=== PATIENT | male | born 1980 | race African-American/Black ===

== ENCOUNTER 2016-10-16 10:27 | Emergency (ER) | payer OTHER ==
--- NOTE | 2016-10-16 10:32 | ER Document Report ---
ED Medical Screen (RME) - General Stated Complaint: SORE THROAT Notes: onset thursday sore throat all week with mild improvement over the course of the week while hes been drinking hot tea. Also left teeth pain, c/o left upper and two on the lower jaw. he states he was referred over for abx. Denies fever, chills he did receive a flu vaccine this year I have greeted and performed a rapid initial assessment of this patient. A comprehensive ED assessment and evaluation of the patient, analysis of test results and completion of the medical decision making process will be conducted by additional ED providers. TRAVEL OUTSIDE OF THE [place] IN LAST 30 DAYS: No - Related Data Allergies/Adverse Reactions: No Known Allergies Allergy (Verified 10/16/16 10:29) Past Medical History - Past Medical History Cardiac Medical History: Reports: Hx Hypertension - Immunizations Immunizations up to date: Yes Hx Diphtheria, Pertussis, Tetanus Vaccination: Yes
--- NOTE | 2016-10-16 11:14 | ER Document Report ---
ED General - General Chief Complaint: Sore Throat Stated Complaint: SORE THROAT Time seen by provider: 10:55 Mode of Arrival: Ambulatory Information source: Patient Notes: 36-year-old male with 3 day history of sore throat and four-day history of pain and swelling to the left upper posterior tooth in the left lower posterior 2 teeth. Patient says he has seen an oral surgeon Dr. Valle has been told he needs surgery for the teeth but is waiting on insurance issues. He denies fever , chills, nausea, vomiting, cough, earache, headache, chest pain, abdominal pain , back pain. Patient reports he saw a dentist last month but never took antibiotics for pain medicines because he lost. Physical Exam: General: Alert, appears well. HEENT: Normocephalic. Atraumatic. PERRLA. Extraocular movements intact. Tympanic members canals clear Oropharynx has faint erythema to tonsillar area bilaterally but no exudate or swelling. He does have erythema and swelling around the left upper posterior tooth in the left lower posterior tooth teeth with obvious dental defects to the bottom teeth. He has no stridor hoarseness or drooling Neck: Supple. Non-tender. No adenopathy no nuchal rigidity Respiratory: No respiratory distress. Clear and equal breath sounds bilaterally. Cardiovascular: Regular rate and rhythm. Abdominal: Normal Inspection. Soft, non-tender. No distension. Normal Bowel Sounds. Back: Non-tender. No deformity or step off. Extremities without gross deformities Neurological speech clear mentation normal. Psychological: Normal affect. Normal Mood. Skin: Warm. Dry. Normal color. TRAVEL OUTSIDE OF THE [place] IN LAST 30 DAYS: No - Related Data Allergies/Adverse Reactions: No Known Allergies Allergy (Verified 10/16/16 10:29) Past Medical History - Social History Smoking Status: Never Smoker Chew tobacco use (# tins/day): No Frequency of alcohol use: None Drug Abuse: None Family History: Hypertension Patient has suicidal ideation: No Patient has homicidal ideation: No - Past Medical History Cardiac Medical History: Reports: Hx Hypertension Renal/ Medical History: Denies: Hx Peritoneal Dialysis Surgical Hx: Negative - Immunizations Immunizations up to date: Yes Hx Diphtheria, Pertussis, Tetanus Vaccination: Yes Hx Pneumococcal Vaccination: 08/10/00 Review of Systems - Review of Systems Constitutional: denies: Chills, Fever EENT: Throat pain. denies: Ear pain Cardiovascular: denies: Chest pain, Syncope Respiratory: denies: Cough, Short of breath Gastrointestinal: denies: Abdominal pain, Nausea, Vomiting Genitourinary: denies: Burning Musculoskeletal: denies: Back pain Skin: denies: Rash Hematologic/Lymphatic: denies: Swollen glands Neurological/Psychological: denies: Weakness, Numbness Physical Exam - Vital signs Vitals: Temp Pulse Resp BP Pulse Ox 98.1 F 78 17 145/109 H 100 10/16/16 10:31 10/16/16 10:31 10/16/16 10:31 10/16/16 10:31 10/16/16 10:31 Course - Re-evaluation Re-evalutation: 10/16/16 11:16 Patient's rapid strep was negative but a believe he requires antibiotics for odontogenic infection. Also be prescribed tramadol for pain and instructed follow-up with dentist. Believe the acute pharyngitis is viral - Vital Signs Vital signs: Temp Pulse Resp BP Pulse Ox 98.1 F 78 17 145/109 H 100 10/16/16 10:31 10/16/16 10:31 10/16/16 10:31 10/16/16 10:31 10/16/16 10:31 Discharge - Discharge Clinical Impression: Dental infection Acute pharyngitis Qualifiers: Pharyngitis/tonsillitis etiology: unspecified etiology Qualified Code(s): J02.9 - Acute pharyngitis, unspecified Condition: Stable Disposition: HOME, SELF-CARE Additional Instructions: Dental Infection or Abscess You have an infection, perhaps an abscess (pus formation) of the gum around one of your teeth, which is probably decayed. If there is an abscess, it may drain on its own or it may need to be opened or lanced. Severe swelling or drainage around a tooth usually means a deep dental abscess which usually requires evaluation and treatment by a dentist or oral surgeon. Antibiotics may be prescribed while awaiting dental treatment. If you develop high fever with chills, worsening pain, or increasing swelling in the area, see a dentist or oral surgeon immediately or return to the Emergency Department immediately. Prescriptions: Amoxicillin 1 tab PO TID #30 tab Tramadol HCl 50 mg PO BID PRN #20 tablet PRN Reason: For Pain Referrals: [facility] [Provider Group] - Follow up as needed
[2016-10-16 11:33] VITALS: BP 139/93
== END 2016-10-16 11:33 | disposition home or self-care (01) ==
LOC: ER 10:27
DX: J02.9 Acute pharyngitis, unspecified (principal); K04.7 Periapical abscess without sinus; K08.89 Other specified disorders of teeth and supporting structures; I10 Essential (primary) hypertension
CPT/HCPCS: 87070; 87880; 99283

== ENCOUNTER 2017-09-15 16:15 | Emergency (ER) | payer OTHER ==
[2017-09-15] MEDS ORDERED: NORMAL SALINE 1000 ML 1,000 ML IV ONE (16:45)
--- NOTE | 2017-09-15 17:02 | ER Document Report ---
ED General - General Chief Complaint: Abdominal Pain Stated Complaint: STOMACH PAIN Time Seen by Provider: 09/15/17 16:45 Mode of Arrival: Ambulatory Information source: Patient TRAVEL OUTSIDE OF THE [place] IN LAST 30 DAYS: No - HPI Patient complains to provider of: abd pain Onset: Yesterday - pt started with abd pain adn diarrhea yesterday - Related Data Allergies/Adverse Reactions: No Known Allergies Allergy (Verified 09/15/17 16:16) Past Medical History - Social History Smoking Status: Never Smoker Chew tobacco use (# tins/day): No Frequency of alcohol use: None Drug Abuse: None Family History: Reviewed & Not Pertinent, Hypertension Patient has suicidal ideation: No Patient has homicidal ideation: No - Past Medical History Cardiac Medical History: Reports: Hx Hypertension Renal/ Medical History: Denies: Hx Peritoneal Dialysis - Immunizations Immunizations up to date: Yes Hx Diphtheria, Pertussis, Tetanus Vaccination: Yes Hx Pneumococcal Vaccination: 08/10/00 Physical Exam - Vital signs Vitals: Temp Pulse Resp BP Pulse Ox 98.8 F 109 H 16 130/105 H 98 09/15/17 16:38 09/15/17 16:38 09/15/17 16:38 09/15/17 16:38 09/15/17 16:38 Course - Vital Signs Vital signs: Temp Pulse Resp BP Pulse Ox 98.8 F 109 H 16 130/105 H 98 09/15/17 16:38 09/15/17 16:38 09/15/17 16:38 09/15/17 16:38 09/15/17 16:38
--- NOTE | 2017-09-15 17:11 | RADIOLOGY REPORT (SQ) ---
EXAM DESCRIPTION: ACUTE ABDOMEN SERIES COMPLETED DATE/TIME: 09/15/2017 5:01 pm REASON FOR STUDY: abd pain COMPARISON: None. NUMBER OF VIEWS: Three views. TECHNIQUE: Frontal chest, supine abdomen and upright/decubitus abdomen radiographic images acquired. LIMITATIONS: None. FINDINGS: CHEST: Lungs clear of infiltrates. FREE AIR: None. No abnormal gas collections. BOWEL GAS PATTERN: Nonobstructive pattern. No dilated loops or air fluid levels. CALCIFICATIONS: No suspicious calcifications. HARDWARE: None in the abdomen. SOFT TISSUES: No gross mass or suggestion of organomegaly. BONES: No acute fracture. No worrisome bone lesions. OTHER: No other significant finding. IMPRESSION: NO RADIOGRAPHIC EVIDENCE FOR ACUTE ABDOMINAL DISEASE. Minimal fecal material TECHNICAL DOCUMENTATION: JOB ID: [id number] [employer]- All Rights Reserved
[2017-09-15 18:01] LABS: APPEARANCE,URINE CLEAR; BILIRUBIN,URINE NEGATIVE (NEGATIVE); COLOR,URINE YELLOW; GLUCOSE, URINE NEGATIVE (NEGATIVE); KETONES,URINE NEGATIVE (NEGATIVE); LEUKOCYTE ESTERASE,URINE NEGATIVE (NEGATIVE); NITRITE,URINE NEGATIVE (NEGATIVE); PROTEIN,URINE NEGATIVE (NEGATIVE); URINE SPECIFIC GRAVITY 1.014; UROBILINOGEN,URINE NEGATIVE mg/dL (<2.0)
[2017-09-15 18:26] LABS: HEMATOCRIT 44.9 % (37.9-51.0); MEAN CORPUSCULAR HEMOGLOBIN 28.2 pg (27.0-33.4); MEAN CORPUSCULAR HGB CONC 33.3 g/dL (32.0-36.0); MEAN CORPUSCULAR VOLUME 85 fl (80-97); PLATELET COUNT 146 10^3/uL (150-450); RED BLOOD COUNT 5.31 10^6/uL (4.35-5.55); RED CELL DISTRIBUTION WIDTH 13.5 % (11.5-14.0); WHITE BLOOD COUNT 4.1 10^3/uL (4.0-10.5)
[2017-09-15 18:41] LABS: ALANINE AMINOTRANSFERASE 29 U/L (21-72); ALBUMIN 4.6 g/dL (3.5-5.0); ALKALINE PHOSPHATASE 58 U/L (38-126); ANION GAP 10 (5-19); ASPARTATE AMINO TRANSFERASE 27 U/L (17-59); BILIRUBIN,DIRECT 0.4 mg/dL (0.0-0.4); BILIRUBIN,TOTAL 1.1 mg/dL (0.2-1.3); BLOOD UREA NITROGEN 12 mg/dL (7-20); CALCIUM 10.5 mg/dL (8.4-10.2); CARBON DIOXIDE 28 mmol/L (22-30); CHLORIDE 105 mmol/L (98-107); GLUCOSE 83 mg/dL (75-110); LIPASE 218.2 U/L (23-300); POTASSIUM 4.3 mmol/L (3.6-5.0); SODIUM 142.8 mmol/L (137-145); TOTAL PROTEIN 8.1 g/dL (6.3-8.2)
[2017-09-15 18:50] LABS: ABSOLUTE LYMPHOCYTES# (MANUAL) 0.9 10^3/uL (0.5-4.7); ABSOLUTE MONOCYTES # (MANUAL) 0.5 10^3/uL (0.1-1.4); ABSOLUTE NEUTROPHILS# (MANUAL) 2.6 10^3/uL (1.7-8.2); BASOPHILS % (MANUAL) 0 % (0-2); EOSINOPHILS % (MANUAL) 3 % (0-6); LYMPHOCYTES % (MANUAL) 23 % (13-45); MONOCYTES % (MANUAL) 11 % (3-13); SEGMENTED NEUTROPHILS % (MAN) 63 % (42-78); TOTAL CELLS COUNTED 100
[2017-09-15 18:51] LABS: PLATELET COMMENT DECREASED; PLATELET LARGE PRESENT; TOXIC GRANULATION SLIGHT
--- NOTE | 2017-09-15 20:45 | ER Document Report ---
ED General - General Chief Complaint: Abdominal Pain Stated Complaint: STOMACH PAIN Time Seen by Provider: 09/15/17 16:45 Mode of Arrival: Ambulatory Notes: 37-year-old male presents with diarrhea for 1 day, no belly pain or vomiting. Family with same. Symptoms are moderate. Not taking any medication at home. Denies fever chills. No antibiotics foreign travel. TRAVEL OUTSIDE OF THE [place] IN LAST 30 DAYS: No - Related Data Allergies/Adverse Reactions: No Known Allergies Allergy (Verified 09/15/17 16:16) Past Medical History - General Information source: Patient - Social History Smoking Status: Never Smoker Chew tobacco use (# tins/day): No Frequency of alcohol use: None Drug Abuse: None Family History: Reviewed & Not Pertinent, Hypertension Patient has suicidal ideation: No Patient has homicidal ideation: No - Past Medical History Cardiac Medical History: Reports: Hx Hypertension Renal/ Medical History: Denies: Hx Peritoneal Dialysis - Immunizations Immunizations up to date: Yes Hx Diphtheria, Pertussis, Tetanus Vaccination: Yes Hx Pneumococcal Vaccination: 08/10/00 Review of Systems - Review of Systems Notes: REVIEW OF SYSTEMS GEN: Denies fever, chills, weight loss ENT: Denies sore throat, nasal discharge, ear pain EYES: Denies blurry vision, eye pain, discharge CV: Denies chest pain, palpitations, edema RESP: Denies cough, shortness of breath, wheezing GI: Diarrhea MSK: Denies joint pain/swelling, edema, SKIN: Denies rash, skin lesions LYMPH: Denies swollen glands/lymph nodes NEURO: Denies headache, focal weakness or numbness, dizziness PSYCH: Denies depression, suicidal or homicidal ideation PHYSICAL EXAMINATION General: No acute distress, well-nourished Head: Atraumatic, normocephalic ENT: Mouth normal, oropharynx moist, no exudates or tonsillar enlargement Eyes: Conjunctiva normal, pupils equal, lids normal Neck: No JVD, supple, no guarding CVS: Normal rate, regular rhythm, no murmurs Resp: No resp distress, equal and normal breath sounds bilaterally GI: Nondistended, soft, no tenderness to palpation, no rebound or guarding Ext: No deformities, no edema, normal range of motion in upper and lower ext Back: No CVA or midline TTP Skin: No rash, warm Lymphatic: No lymphadeopathy noted Neuro: Awake, alert. Face symmetric. GCS 15. Physical Exam - Vital signs Vitals: Temp Pulse Resp BP Pulse Ox 98.8 F 109 H 16 130/105 H 98 09/15/17 16:38 09/15/17 16:38 09/15/17 16:38 09/15/17 16:38 09/15/17 16:38 Course - Re-evaluation Re-evalutation: 09/15/17 20:43 Isolated diarrhea with no vital sign abnormalities, no abdominal tenderness and normal labs. Patient appears quite comfortable and is tolerating p.o. Discharge home with Zofran just in case and hydration instructions. I have discussed with the patient there likely diagnosis, aftercare plan, follow -up plans and my usual and customary return precautions. They verbalized understanding of this. - Vital Signs Vital signs: Temp Pulse Resp BP Pulse Ox 98.8 F 109 H 16 130/105 H 98 09/15/17 16:38 09/15/17 16:38 09/15/17 16:38 09/15/17 16:38 09/15/17 16:38 - Laboratory Result Diagrams: 09/15/17 18:08 09/15/17 18:08 Laboratory results interpreted by me: 09/15/17 09/15/17 09/15/17 17:40 18:08 18:08 Plt Count 146 L Calcium 10.5 H Urine Blood SMALL H Discharge - Discharge Clinical Impression: Diarrhea Qualifiers: Diarrhea type: unspecified type Qualified Code(s): R19.7 - Diarrhea, unspecified Condition: Good Disposition: HOME, SELF-CARE Instructions: Antispasmodics ([facility]), Abdominal Pain ([facility]) Additional Instructions: Keep well-hydrated with water and Gatorade. Please return to the ER for any worsening symptoms. Prescriptions: Ondansetron [Zofran Odt 4 mg Tablet] 1 - 2 tab PO Q4H PRN #15 tab.rapdis PRN Reason: For Nausea/Vomiting Forms: Return to School, Return to Work
[2017-09-15 21:38] VITALS: BP 126/89
== END 2017-09-15 21:38 | disposition home or self-care (01) ==
LOC: ER 16:15
DX: R19.7 Diarrhea, unspecified (principal); I10 Essential (primary) hypertension
CPT/HCPCS: 36415; 74022; 80053; 81001; 83690; 85025; 99284

== ENCOUNTER 2018-09-17 17:12 | Emergency (ER) | payer OTHER ==
[2018-09-17] MEDS ORDERED: OXYCODONE-ACETAMINOPHEN 5-325 MG TABLET PO ONE (19:02)
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
[2018-09-18 01:14] VITALS: BP 143/96
--- NOTE | 2018-09-18 20:08 | EKG REPORT ---
SEVERITY:- ABNORMAL ECG - SINUS RHYTHM CONSIDER LEFT VENTRICULAR HYPERTROPHY : Confirmed by: Flory Salcedo 18-Sep-2018 20:07:43
== END 2018-09-17 20:23 | disposition home or self-care (01) ==
LOC: ER 17:12
DX: S16.1XXA Strain of muscle, fascia and tendon at neck level, initial encounter (principal); M54.5 Low back pain; R07.89 Other chest pain; M54.2 Cervicalgia; V43.52XA Car driver injured in collision with other type car in traffic accident, initial encounter; I10 Essential (primary) hypertension
CPT/HCPCS: 93005; 99284; 71046; 72125; 93010; L0120

== ENCOUNTER 2019-09-08 22:52 | Emergency (ER) | payer OTHER ==
[2019-09-09 00:12] VITALS: BP 147/103
== END 2019-09-09 01:00 | disposition left against medical advice (07) ==
LOC: ER 22:52
DX: Z53.21 Procedure and treatment not carried out due to patient leaving prior to being seen by health care provider (principal)